=== PATIENT | female | born 1995 | race Caucasian/White ===

== ENCOUNTER 2017-05-31 15:26 | Emergency (ER) | END 2017-05-31 17:26 | disposition home or self-care (01) ==

== ENCOUNTER 2017-06-03 11:42 | Emergency (ER) | END 2017-06-03 14:38 | disposition home or self-care (01) ==

== ENCOUNTER 2017-06-27 12:35 | Emergency (ER) | END 2017-06-27 17:38 | disposition home or self-care (01) ==

== ENCOUNTER 2018-11-06 19:08 | Emergency (ER) | payer MEDICAID ==
[~2018-11-06] VITALS: Ht 160 cm; Wt 81.5 kg
[~2018-11-06 19:08] MED LIST: ACET500C5 PO; CLIN300C10 PO
[2018-11-06 19:15] VITALS: BP 126/55; PULSE 80; RESP 18; Ht 160 cm; Wt 81.5 kg
[2018-11-06] MEDS ORDERED: KETOROLAC 60 MG INJ IM STA (21:32)
[2018-11-06] MEDS ORDERED: DEXAMETHASONE 10 MG/ML 1 ML INJ IM ONE (22:00)
[2018-11-06] MEDS ORDERED: traMADol 50 MG TAB PO ONE (22:00)
[2018-11-06] MEDS ORDERED: CYCLOBENZAPRINE 10 MG TAB PO ONE (22:00)
[2018-11-06] MEDS ORDERED: TRAM50TA2 PO (22:48)
[2018-11-06] MEDS ORDERED: IBUP-1544 PO (22:48)
[2018-11-06] MEDS ORDERED: CYCL10TA7 PO (22:56)
--- NOTE | 2018-11-07 02:53 | ERD ---
ER Documentation Chief Complaint Chief Complaint right upper abd pain x 1 day HPI History of Present Illness: 23-year-old female who denies a past medical history coming in today with complaint of right rib pain. Patient reports that she woke up one morning and had right sided rib pain that has been persistent, non progressive. At home pharmacological/nonpharmacological treatment for symptoms: Acetaminophen, last dose 3 days ago Denies social concerns; Denies recent foreign travel ROS All systems reviewed and are negative except as per history of present illness. Medications Home Meds Active Scripts Cyclobenzaprine Hcl* (Cyclobenzaprine Hcl*) 10 Mg Tablet, 10 MG PO TID for MUSCLE PAIN/MUSCLE SPASM, #15 TAB Prov:ELIAS FRANK V [employer] 11/06/18 Tramadol HCl (Tramadol HCl) 50 Mg Tablet, 50 MG PO Q6 for MODERATE/SEVERE PAIN, #20 TAB This medication is for moderate to severe pain. Take this medication if ibuprofen is not working. Prov:ELIAS FRANK NP 11/06/18 Ibuprofen* (Ibuprofen*) 800 Mg Tablet, 800 MG PO Q6H PRN for PAIN/SWELLING/INFLAMMATION, #30 TAB Prov:ELIAS FRANK NP 11/06/18 Acetaminophen* (Tylophen*) 500 Mg Capsule, 1 CAP PO Q4 PRN for PAIN AND OR ELEVATED TEMP, #30 CAP Prov:CAYDEN SOLOMON PA-C 06/27/17 Acetaminophen* (Tylophen*) 500 Mg Capsule, 1 CAP PO Q6H PRN for PAIN AND OR HEMA VATED TEMP, #15 CAP Prov:KYLE GROSS MD 05/31/17 Clindamycin Hcl* (Clindamycin Hcl*) 300 Mg Capsule, 300 MG PO TID for 7 Days, CAP Prov:KYLE GROSS MD 05/31/17 Allergies Allergies: Coded Allergies: No Known Drug Allergies (Verified Allergy, Mild, 10/19/09) PMhx/Soc History of Surgery: Yes () Anesthesia Reaction: No Hx Neurological Disorder: No Hx Respiratory Disorders: No Hx Cardiac Disorders: No Hx Psychiatric Problems: No Hx Miscellaneous Medical Probl: No Hx Alcohol Use: Yes Hx Substance Use: No Hx Tobacco Use: No Smoking Status: Never smoker FmHx ED course includes a thorough examination and history. Medications: Cyclobenzaprine, tramadol, ketorolac, dexamethasone Imaging: Labs: Urine Low suspicion for life-threatening medical emergency. Low suspicion for acute abdominal emergency. Otherwise healthy patient presenting with constellation of symptoms likely representing right rib pain/muscle pain as characterized by history, physical exam findings, lab findings. Urine negative. Patient reassessmen 2305: Pain reassessment includes decrease in pain. No physical signs of pain. Patient hemodynamically stable. No respiratory distress, otherwise relatively well appearing and nontoxic. Disposition given. Patient educated on diagnoses, prescriptions, follow-up care, return precautions. Strict return precautions given for worsening condition; questions answered discharge. Patient verbalizes understanding of discharge instructions as well as plan of care. Disposition for discharge with followup in 2 days with PCP/clinic. Family History: No diabetes, No coronary disease Physical Exam Vitals Vital Signs Date Temp Pulse Resp B/P (MAP) Pulse Ox O2 O2 Flow FiO2 Time Delivery Rate 11/06/18 97.7 80 18 126/55 97 19:15 (78) Physical Exam Const: No acute distress Head: Atraumatic Eyes: Normal Conjunctiva ENT: Normal External Ears, Nose and Mouth. Neck: Full range of motion. No meningismus. Resp: Clear to auscultation bilaterally Cardio: Regular rate and rhythm, no murmurs Abd: Soft, non tender, non distended. Normal bowel sounds. Tenderness to palpation over right rib muscular skeletal.s, Skin: No petechiae or rashes Back: No midline or flank tenderness Ext: No cyanosis, or edema Neur: Awake and alert Psych: Normal Mood and Affect Results 24 hrs Laboratory Tests Test 11/06/18 21:51 POC Beta HCG, Qualitative NEGATIVE Current Medications Medications Dose Sig/Kathryn Start Time Status Last (Trade) Ordered Route PRN Stop Time Admin Dose Reason Admin 10 mg ONCE ONCE 11/06/18 DC 11/06/18 Dexamethasone IM 22:00 21:58 (Decadron) 11/06/18 22:01 Ketorolac 60 mg ONCE STAT 11/06/18 DC 11/06/18 Tromethamine IM 21:32 21:58 (Toradol) 11/06/18 21:35 Tramadol 50 mg ONCE ONCE 11/06/18 DC 11/06/18 HCl PO 22:00 21:58 (Ultram) 11/06/18 22:01 10 mg ONCE ONCE 11/06/18 DC 11/06/18 Cyclobenzapri PO 22:00 21:59 ne HCl 11/06/18 22:01 (Flexeril) Procedures/MDM ED course includes a thorough examination and history. Medications: Cyclobenzaprine, ketorolac, dexamethasone, tramadol Imaging: Labs: Urine Low suspicion for life-threatening medical emergency. Low suspicion for acute abdominal emergency. Otherwise healthy patient presenting with constellation of symptoms likely representing uncomplicated right rib pain/muscle pain as characterized by history, physical exam findings. Urine negative. Patient reassessment 2303: Patient reporting decrease in pain after medication administration patient hemodynamically stable. No respiratory distress, otherwise relatively well appearing and nontoxic. Disposition given. Patient educated on diagnoses, prescriptions, follow-up care, return precautions. Strict return precautions given for worsening condition; questions answered discharge. Patient verbalizes understanding of plan of care, return precautions, follow-up care. Disposition for discharge with followup in 2 days with PCP/clinic. Departure Diagnosis: Primary Impression: Rib pain on right side Additional Impression: Muscle spasm Condition: Stable Patient Instructions: Muscle Spasm, Myalgias Referrals: [facility] YOU HAVE RECEIVED A MEDICAL SCREENING EXAM AND THE RESULTS INDICATE THAT YOU DO NOT HAVE A CONDITION THAT REQUIRES URGENT TREATMENT IN THE EMERGENCY DEPARTMENT. FURTHER EVALUATION AND TREATMENT OF YOUR CONDITION CAN WAIT UNTIL YOU ARE SEEN IN YOUR DOCTORS OFFICE WITHIN THE NEXT 1-2 DAYS. IT IS YOUR RESPONSIBILITY TO MAKE AN APPOINTMENT FOR FOLOW-UP CARE. IF YOU HAVE A PRIMARY DOCTOR --you should call your primary doctor and schedule an appointment IF YOU DO NOT HAVE A PRIMARY DOCTOR YOU CAN CALL OUR PHYSICIAN REFERRAL HOTLINE AT IF YOU CAN NOT AFFORD TO SEE A PHYSICIAN YOU CAN CHOSE FROM THE FOLLOWING [facility] [address] [facility]. [facility] [address] [facility]. [facility] [address] [facility]. [facility] [address] [facility]. [facility] [address] [facility]. [facility]. [address] [facility]. [facility] YOU HAVE RECEIVED A MEDICAL SCREENING EXAM AND THE RESULTS INDICATE THAT YOU DO NOT HAVE A CONDITION THAT REQUIRES URGENT TREATMENT IN THE EMERGENCY DEPARTMENT. FURTHER EVALUATION AND TREATMENT OF YOUR CONDITION CAN WAIT UNTIL YOU ARE SEEN IN YOUR DOCTORS OFFICE WITHIN THE NEXT 1-2 DAYS. IT IS YOUR RESPONSIBILITY TO MAKE AN APPOINTMENT FOR FOLOW-UP CARE. IF YOU HAVE A PRIMARY DOCTOR --you should call your primary doctor and schedule and appointment IF YOU DO NOT HAVE A PRIMARY DOCTOR YOU CAN CALL OUR PHYSICIAN REFERRAL HOTLINE AT . IF YOU CAN NOT AFFORD TO SEE A PHYSICIAN YOU CAN CHOSE FROM THE FOLLOWING [facility]: [facility] [address] [place] [address] [facility] [address] [place] [address] [facility] [address] [place] [address] Additional Instructions: Thank you very much for allowing us to participate in your care. Your health and safety is our top priority at [facility]. It is important to read all discharge instructions and education provided in your discharge packet. Call your primary care doctor TOMORROW for an appointment during the next 2-4 days and bring all the information and medications prescribed. Have prescriptions filled and follow precisely the directions on the label. --Ibuprofen is a medication that will help with pain/inflammation. At the dosage of 600 to 800 mg, this will help with inflammation/swelling. Take this medication as prescribed. -Tramadol is an opiate pain medication; take this medication as needed for moderate to severe pain. No operating of heavy machinery while taking this medication. It may cause drowsiness. --Cyclobenzaprine as a muscle relaxer; take this medication daily as prescribed for the next week to help with your muscle spasm. Do not operate heavy machinery while taking this medication; It may make you drowsy. If the symptoms get worse and your provider is unavailable, return to the Emergency Department immediately. ELIAS FRANK NP Nov 07, 2018 02:53
== END 2018-11-06 23:10 | disposition home or self-care (01) ==
LOC: FTE 19:08
DX: R07.81 Pleurodynia (principal); M62.838 Other muscle spasm
CPT/HCPCS: 81025; 96372; J1100; J1885; Z7502; Z7610